=== PATIENT | female | born 1975 | race Caucasian/White ===

== ENCOUNTER 2019-07-19 03:29 | Emergency (ER) | payer SELFPAY ==
[~2019-07-19] VITALS: Ht 160 cm; Wt 77.2 kg
--- NOTE | 2019-07-19 04:04 | PHYS DOC ---
General Adult EDM: Chief Complaint: CHEST PAIN HPI: HPI: Patient is a 43 year old female who presents with complaint of chest pain that started last night. Patient states that pain radiates into her left shoulder blade and is primarily in her left mid upper chest. She states that at one point she became nauseated and vomited. She states that at its worst pain was about a 9 out of 10 but is currently a 7 out of 10. She describes it as a deep ache. Patient states that nothing seems to worsen or improve the pain. [] (TERA HUDSON Jr. DO) Review of Systems: Review of Systems: Constitutional: Denies fever or chills. [] Respiratory: Denies cough or shortness of breath. [] Cardiovascular: Complains of chest pain. [] GI: Denies abdominal pain, nausea, vomiting or diarrhea. [] Neurologic: Denies headache, focal weakness or sensory changes. [] A full 10 point review of systems has been reviewed and is otherwise negative. (TERA HUDSON Jr. DO) Heart Score: Risk Factors: Risk Factors: DM, Current or recent (<one month) smoker, HTN, HLP, family history of CAD, obesity. Risk Scores: Score 0 - 3: 2.5% MACE over next 6 weeks - Discharge Home Score 4 - 6: 20.3% MACE over next 6 weeks - Admit for Clinical Observation Score 7 - 10: 72.7% MACE over next 6 weeks - Early Invasive Strategies (TERA HUDSON Jr. DO) HEART Score for Chest Pain: HEART Score for Chest Pain Response (Comments) Value History Slighlty/Non-Suspicious 0 ECG Normal 0 Age < 45 0 Risk Factors 1 or 2 Risk Factors 1 Troponin < Normal Limit 0 Total 1 Physical Exam: PE: Constitutional: Well developed, well nourished, no acute distress, non-toxic appearance. [] HENT: Normocephalic, atraumatic, bilateral external ears normal, oropharynx moist, no oral exudates, nose normal. [] Eyes: PERRLA, EOMI, conjunctiva normal, no discharge. [] Neck: Normal range of motion, no tenderness, supple, no stridor. [] Cardiovascular: Regular rate and rhythm [] Lungs & Thorax: Bilateral breath sounds clear to auscultation [] Abdomen: Bowel sounds normal, soft, no tenderness. [] Skin: Warm, dry, no erythema, no rash. [] Extremities: No tenderness, no cyanosis, no clubbing, ROM intact, no edema. [] Neurologic: Alert and oriented X 3, no focal deficits noted. [] (TERA HUDSON Jr. DO) Current Patient Data: Labs: Laboratory Tests Test 07/19/19 03:50 07/19/19 06:45 White Blood Count 9.0 x10^3/uL Red Blood Count 4.65 x10^6/uL Hemoglobin 14.7 g/dL Hematocrit 43.2 % Mean Corpuscular Volume 93 fL Mean Corpuscular Hemoglobin 32 pg Mean Corpuscular Hemoglobin Concent 34 g/dL Red Cell Distribution Width 13.3 % Platelet Count 277 x10^3/uL Neutrophils (%) (Auto) 78 % Lymphocytes (%) (Auto) 16 % Monocytes (%) (Auto) 4 % Eosinophils (%) (Auto) 1 % Basophils (%) (Auto) 0 % Neutrophils # (Auto) 7.0 x10^3/uL Lymphocytes # (Auto) 1.5 x10^3/uL Monocytes # (Auto) 0.4 x10^3/uL Eosinophils # (Auto) 0.1 x10^3/uL Basophils # (Auto) 0.0 x10^3/uL Sodium Level 140 mmol/L Potassium Level 4.2 mmol/L Chloride Level 106 mmol/L Carbon Dioxide Level 26 mmol/L Anion Gap 8 Blood Urea Nitrogen 11 mg/dL Creatinine 0.7 mg/dL Estimated GFR (Cockcroft-Gault) 91.3 BUN/Creatinine Ratio 16 Glucose Level 125 mg/dL Calcium Level 8.6 mg/dL Magnesium Level 2.0 mg/dL Total Bilirubin 0.3 mg/dL Aspartate Amino Transf (AST/SGOT) 27 U/L Alanine Aminotransferase (ALT/SGPT) 30 U/L Alkaline Phosphatase 61 U/L Troponin I Quantitative < 0.017 ng/mL < 0.017 ng/mL TT-Jyc-G-Type Natriuretic Peptide 60 pg/mL Total Protein 6.9 g/dL Albumin 3.8 g/dL Albumin/Globulin Ratio 1.2 Lipase 69 U/L D-Dimer (Ashwini) < 0.27 ug/mlFEU Urine Collection Type Void Urine Color Yellow Urine Clarity Clear Urine pH 6.5 Urine Specific [place] 1.010 Urine Protein Negative mg/dL Urine Glucose (UA) Negative mg/dL Urine Ketones (Stick) Negative mg/dL Urine Blood Negative Urine Nitrite Negative Urine Bilirubin Negative Urine Urobilinogen Dipstick 0.2 mg/dL Urine Leukocyte Esterase Negative Urine RBC Occ /HPF Urine WBC Occ /HPF Urine Squamous Epithelial Cells Mod /LPF Urine Bacteria Few /HPF Urine Mucus Slight /LPF Current Medications Medications (Trade) Dose Ordered Sig/Cassy Route PRN Reason Start Time Stop Time Status Last Admin Dose Admin Morphine Sulfate (Morphine Sulfate) 4 mg 1X ONCE IV 07/19/19 04:15 07/19/19 04:16 DC Ondansetron HCl (Zofran) 4 mg 1X ONCE IVP 07/19/19 04:15 07/19/19 04:16 DC Aspirin (Aspirin Chewable) 324 mg 1X ONCE PO 07/19/19 04:30 07/19/19 04:31 DC 07/19/19 05:22 Sodium Chloride 1,000 ml @ 1,000 mls/hr Q1H IV 07/19/19 04:30 07/19/19 05:29 DC 07/19/19 05:21 (REHAN ARRIETA DO) EKG: EKG: EKG demonstrates normal sinus rhythm with rate of 81. [] (TERA HUDSON Jr. DO) Radiology/Procedures: Radiology/Procedures: [] Impression: Chest x-ray demonstrates no acute process (TERA HUDSON Jr. DO) Course & Med Decision Making: Course & Med Decision Making Pertinent Labs and Imaging studies reviewed. (See chart for details) Patient moved to room upon arrival was evaluated by ER medical staff after which an IV was established and blood work was drawn. A cardiac work-up has been completed. Initial cardiac enzymes are negative. Findings reviewed with patient and patient does report that she is still having significant pain. I did inquire if patient would like some additional pain medication but she indicated that she did not accept the morphine that was ordered. She states that if she needs to go home, she needs to be able to drive. Patient was encouraged to accept some medication for pain but at this time is still declining. I did discuss admission with the patient but she is still unsure at this time. Patient at this time does agree to repeat set of cardiac enzymes and will also obtain a d-dimer. Patient will be signed out to Dr. Arrieta at 6:30 AM. (TERA HUDSON Jr. DO) Course & Med Decision Making CHEST PAIN, NONSPECIFIC: The patient presents today with chest pain lasting [duration]. The quality of the pain is very atypical for acute coronary syndrome. Additionally, the patient has minimal risk factors for coronary artery disease with a suggestion of good exercise tolerance and does not have ongoing chest pain. Given the duration of the chest pain with cardiac enzymes returning within normal limits, I do feel that from a risk stratification standpoint, the patient can be safely discharged home for outpatient evaluation by the primary care physician. The patient, however, fully understands that the evaluation today in no way rules out coronary artery disease as a possibility and that close followup is necessary as a component of a complete evaluation. The patient also understands that should the pain change, or become more frequent, more intense, or should the patient develop new symptoms, the patient is instructed to return immediately to the emergency room for reevaluation. However, at this time, given the lack of significant risk factors in conjunction with an atypical history in conjunction with normal enzymes despite the duration of pain and an unchanged or normal EKG, I do feel that the information available to us at this time suggests that this is unlikely to represent acute plaque rupture and that the risk of morbidity or mortality is low. Also considered today was the possibility of a pneumothorax, pneumonia, pulmonary embolus, mediastinitis, and thoracic aortic dissection. However, after careful consideration of the patient's clinical history and presentation and findings, there is no evidence to suggest any of these as a likely diagnosis and therefore feel that the continued pursuit of these etiologies is not warranted at this time. (REHAN ARRIETA DO) Linda Disclaimer: Linda Disclaimer: This electronic medical record was generated, in whole or in part, using a voice recognition dictation system. (TERA HUDSON Jr. DO) Departure Departure Impression: Primary Impression: Chest pain Disposition: 01 HOME, SELF-CARE Condition: IMPROVED Patient Instructions: Chest Pain (Nonspecific) Additional Instructions: Thank you for visiting our Emergency Department. We appreciate you trusting us with your care. If any additional problems come up don't hesitate to return to visit us. Please follow up with your primary care provider so they can plan additional care if needed and know about the problem that you had. If symptoms worsen come back to the Emergency Department. Any concerning symptoms that start such as chest pain, shortness of air, weakness or numbness on one side of the b mayank, running high fevers or any other concerning symptoms return to the ER. Scripts Prednisone (PREDNISONE) 20 Mg Tablet 1 TAB PO DAILY for 7 Days, #7 TAB Prov: REHAN ARRIETA DO 07/19/19 Justicifation of Admission Dx: Justifications for Admission: Justification of Admission Dx: Comment: (chest pain) (TERA HUDSON Jr. DO) TERA HUDSON Jr. DO Jul 19, 2019 04:04 REHAN ARRIETA DO Jul 19, 2019 08:06
[2019-07-19] MEDS ORDERED: MORPHINE SULFATE 4 MG/ML VIAL. IV ONE (04:15)
[2019-07-19] MEDS ORDERED: ONDANSETRON PF 4 MG/2 ML VIAL. IVP ONE (04:15)
[2019-07-19] MEDS ORDERED: ASPIRIN CHEWABLE 81 MG TABLET. PO ONE (04:30)
[2019-07-19] MEDS ORDERED: IV NORMAL SALINE 1000ML BAG 1,000 ML IV SCH (04:30)
[2019-07-19 04:40] LABS: BASO % 0 % (0-3); EOS # 0.1 x10^3/uL (0.0-0.7); EOS % 1 % (0-3); HEMATOCRIT 43.2 % (36.0-47.0); HEMOGLOBIN 14.7 g/dL (12.0-15.5); LYMPH # 1.5 x10^3/uL (1.0-4.8); LYMPH % 16 % (24-48); MEAN CORPUSCULAR HEMOGLOBIN 32 pg (25-35); MEAN CORPUSCULAR HGB CONC 34 g/dL (31-37); MEAN CORPUSCULAR VOLUME 93 fL (79-100); MONO # 0.4 x10^3/uL (0.0-1.1); MONO % 4 % (0-9); NEUT % 78 % (31-73); PLATELET COUNT 277 x10^3/uL (140-400); RED BLOOD COUNT 4.65 x10^6/uL (3.50-5.40); RED CELL DISTRIBUTION WIDTH 13.3 % (11.5-14.5)
[2019-07-19 04:52] LABS: CALCIUM 8.6 mg/dL (8.5-10.1); CREATININE 0.7 mg/dL (0.6-1.0); GFR 91.3; POTASSIUM 4.2 mmol/L (3.5-5.1)
[2019-07-19 04:55] LABS: ALBUMIN 3.8 g/dL (3.4-5.0); ALBUMIN/GLOBULIN RATIO 1.2 (1.0-1.7); TOTAL BILIRUBIN 0.3 mg/dL (0.2-1.0); TOTAL PROTEIN 6.9 g/dL (6.4-8.2)
--- NOTE | 2019-07-19 06:50 | RAD ---
INDICATION: Reason: chest pain / Spl. Instructions: / History: COMPARISON: None. FINDINGS: Single view of chest obtained. Calcification in the soft tissues adjacent to the right shoulder. Hypertrophic changes at the acromioclavicular joints. Cardiac silhouette is unremarkable. No focal airspace consolidation. IMPRESSION: * No focal airspace consolidation or edema. Electronically signed by: Phuc Oswald MD (07/19/2019 6:48 AM) [id number]
[2019-07-19 07:14] LABS: BILIRUBIN,URINE NEGATIVE (NEG); CLARITY,URINE CLEAR; COLOR,URINE YELLOW; NITRITE,URINE NEGATIVE (NEG); PH,URINE 6.5 (<5.0-8.0); PROTEIN,URINE NEGATIVE (NEG-TRACE); UROBILINOGEN,URINE 0.2 mg/dL (0.2 mg/dL)
[2019-07-19 07:17] LABS: SQUAMOUS EPITHELIAL CELL,UR MOD /LPF
[2019-07-19 07:18] LABS: BACTERIA,URINE FEW /HPF (0-FEW); RBC,URINE OCC /HPF (0-2); WBC,URINE OCC /HPF (0-4)
[2019-07-19] MEDS ORDERED: PRED20TA PO (08:05)
[2019-07-19 08:17] VITALS: BP 143/80
--- NOTE | 2019-07-21 06:17 | EKG ---
[facility] [address] [place] [address] Test Date: 2019-07-19 Test Time: 03:37:46 Pat Name: RENETTA HENRIQUEZ Department: Room: Gender: F Flight Hostess: : 1975 Requested By: TERA HUDSON Order Number: [id number] Reading MD: Christiano Sharif MD Measurements Intervals [place] Rate: 81 P: 51 NV: 148 QRS: 28 QRSD: 92 T: 30 QT: 372 QTc: 438 Interpretive Statements SINUS RHYTHM Electronically Signed On 07-21-2019 13:18:13 CDT by Christiano Sharif MD
== END 2019-07-19 08:40 | disposition home or self-care (01) ==
LOC: ER 03:29
DX: R07.89 Other chest pain (principal); R11.2 Nausea with vomiting, unspecified
CPT/HCPCS: 36415; 71045; 80053; 81001; 83690; 83735; 83880; 84484; 85025; 85379; 96360; 99285; J7030; 93005

== ENCOUNTER 2019-09-03 20:18 | Emergency (ER) | payer SELFPAY ==
[~2019-09-03] VITALS: Ht 160 cm; Wt 72.7 kg
[~2019-09-03 20:18] MED LIST: PRED20TA PO
[2019-09-03] MEDS ORDERED: ASPIRIN CHEWABLE 81 MG TABLET. PO ONE (21:00)
[2019-09-03 21:10] LABS: BASO % 0 % (0-3); EOS # 0.2 x10^3/uL (0.0-0.7); EOS % 2 % (0-3); HEMATOCRIT 44.4 % (36.0-47.0); HEMOGLOBIN 15.2 g/dL (12.0-15.5); LYMPH # 2.5 x10^3/uL (1.0-4.8); LYMPH % 23 % (24-48); MEAN CORPUSCULAR HEMOGLOBIN 32 pg (25-35); MEAN CORPUSCULAR HGB CONC 34 g/dL (31-37); MEAN CORPUSCULAR VOLUME 92 fL (79-100); MONO # 0.6 x10^3/uL (0.0-1.1); MONO % 6 % (0-9); NEUT # 7.3 x10^3/uL (1.8-7.7); NEUT % 69 % (31-73); PLATELET COUNT 278 x10^3/uL (140-400); RED BLOOD COUNT 4.83 x10^6/uL (3.50-5.40); WHITE BLOOD COUNT 10.6 x10^3/uL (4.0-11.0)
[2019-09-03 21:18] LABS: CALCIUM 9.3 mg/dL (8.5-10.1); CREATININE 0.9 mg/dL (0.6-1.0); GFR 68.3; POTASSIUM 3.7 mmol/L (3.5-5.1)
--- NOTE | 2019-09-03 21:21 | RAD ---
Exam: Chest one view INDICATION: Chest pain TECHNIQUE: Frontal view of the chest Comparisons: 07/19/2019 FINDINGS: The cardiomediastinal silhouette and pulmonary vessels are within normal limits. The lung and pleural spaces are clear. IMPRESSION: No acute cardiopulmonary process. Electronically signed by: Vee Gorman MD (09/03/2019 9:17 PM) [id number]
[2019-09-03 21:24] LABS: ALBUMIN 4.2 g/dL (3.4-5.0); ALBUMIN/GLOBULIN RATIO 1.4 (1.0-1.7); TOTAL BILIRUBIN 0.3 mg/dL (0.2-1.0); TOTAL PROTEIN 7.3 g/dL (6.4-8.2)
[2019-09-03 22:00] VITALS: BP 118/70
[2019-09-03] MEDS ORDERED: PANT20TA2 PO (22:05)
--- NOTE | 2019-09-03 22:06 | PHYS DOC ---
Past Medical History Past Medical History: Asthma Past Surgical History: , Hysterectomy, Tonsillectomy Smoking Status: Current Every Day Smoker Alcohol Use: Occasionally General Adult EDM: Chief Complaint: CHEST PAIN-CARDIAC NATURE HPI: HPI: Patient is a 43-year-old otherwise healthy female who presents with sharp left- sided chest pain. She states it started in her back and is now in the front of her chest. She denies any shortness of breath dyspnea on exertion. She denies a pleuritic nature. She has not had any cough or congestion. She denies hemoptysis. She states it started rather suddenly. She denies any fever chills or sweats. She states as long as she is sitting here in the bed the pain feels much better now. She has had some indigestion throughout the day today. She states this pain is been ongoing throughout the day today. [] Review of Systems: Review of Systems: Constitutional: Denies fever or chills. [] Eyes: Denies change in visual acuity. [] HENT: Denies nasal congestion or sore throat. [] Respiratory: Denies cough or shortness of breath. [] Cardiovascular: Per HPI. [] GI: Denies abdominal pain, nausea, vomiting, bloody stools or diarrhea. [] : Denies dysuria. [] Musculoskeletal: Denies back pain or joint pain. [] Integument: Denies rash. [] Neurologic: Denies headache, focal weakness or sensory changes. [] Endocrine: Denies polyuria or polydipsia. [] Lymphatic: Denies swollen glands. [] Psychiatric: Denies depression or anxiety. [] Heart Score: HEART Score for Chest Pain: HEART Score for Chest Pain Response (Comments) Value History Slighlty/Non-Suspicious 0 ECG Normal 0 Age < 45 0 Risk Factors 1 or 2 Risk Factors 1 Troponin < Normal Limit 0 Total 1 Risk Factors: Risk Factors: DM, Current or recent (<one month) smoker, HTN, HLP, family history of CAD, obesity. Risk Scores: Score 0 - 3: 2.5% MACE over next 6 weeks - Discharge Home Score 4 - 6: 20.3% MACE over next 6 weeks - Admit for Clinical Observation Score 7 - 10: 72.7% MACE over next 6 weeks - Early Invasive Strategies Current Medications: Current Medications Medications (Trade) Dose Ordered Sig/Cassy Start Time Stop Time Status Last Admin Dose Admin Aspirin (Aspirin Chewable) 324 mg 1X ONCE 09/03/19 21:00 09/03/19 21:01 DC 09/03/19 21:18 324 MG Allergies: Allergies: Allergies Coded Allergies Type Severity Reaction Last Updated Verified No Known Drug Allergies 07/19/19 No Physical Exam: PE: Constitutional: Well developed, well nourished, no acute distress, non-toxic appearance. [] HENT: Normocephalic, atraumatic, bilateral external ears normal, oropharynx moist, no oral exudates, nose normal. [] Eyes: PERRLA, EOMI, conjunctiva normal, no discharge. [] Neck: Normal range of motion, no tenderness, supple, no stridor. [] Cardiovascular:Heart rate regular rhythm, no murmur [] Lungs & Thorax: Bilateral breath sounds clear to auscultation [] Abdomen: Bowel sounds normal, soft, no tenderness, no masses, no pulsatile masses. [] Skin: Warm, dry, no erythema, no rash. [] Back: No tenderness, no CVA tenderness. [] Extremities: No tenderness, no cyanosis, no clubbing, ROM intact, no edema. [] Neurologic: Alert and oriented X 3, normal motor function, normal sensory function, no focal deficits noted. [] Psychologic: Extremely anxious. [] Current Patient Data: Labs: Laboratory Tests Test 09/03/19 20:27 White Blood Count 10.6 x10^3/uL (4.0-11.0) Red Blood Count 4.83 x10^6/uL (3.50-5.40) Hemoglobin 15.2 g/dL (12.0-15.5) Hematocrit 44.4 % (36.0-47.0) Mean Corpuscular Volume 92 fL (79-100) Mean Corpuscular Hemoglobin 32 pg (25-35) Mean Corpuscular Hemoglobin Concent 34 g/dL (31-37) Red Cell Distribution Width 13.0 % (11.5-14.5) Platelet Count 278 x10^3/uL (140-400) Neutrophils (%) (Auto) 69 % (31-73) Lymphocytes (%) (Auto) 23 % (24-48) L Monocytes (%) (Auto) 6 % (0-9) Eosinophils (%) (Auto) 2 % (0-3) Basophils (%) (Auto) 0 % (0-3) Neutrophils # (Auto) 7.3 x10^3/uL (1.8-7.7) Lymphocytes # (Auto) 2.5 x10^3/uL (1.0-4.8) Monocytes # (Auto) 0.6 x10^3/uL (0.0-1.1) Eosinophils # (Auto) 0.2 x10^3/uL (0.0-0.7) Basophils # (Auto) 0.0 x10^3/uL (0.0-0.2) D-Dimer (Ashwini) < 0.27 ug/mlFEU Sodium Level 142 mmol/L (136-145) Potassium Level 3.7 mmol/L (3.5-5.1) Chloride Level 104 mmol/L (98-107) Carbon Dioxide Level 27 mmol/L (21-32) Anion Gap 11 (6-14) Blood Urea Nitrogen 12 mg/dL (7-20) Creatinine 0.9 mg/dL (0.6-1.0) Estimated GFR (Cockcroft-Gault) 68.3 BUN/Creatinine Ratio 13 (6-20) Glucose Level 110 mg/dL (70-99) H Calcium Level 9.3 mg/dL (8.5-10.1) Total Bilirubin 0.3 mg/dL (0.2-1.0) Aspartate Amino Transferase (AST) 17 U/L (15-37) Alanine Aminotransferase (ALT) 29 U/L (14-59) Alkaline Phosphatase 60 U/L (46-116) Troponin I Quantitative < 0.017 ng/mL (0.000-0.055) Total Protein 7.3 g/dL (6.4-8.2) Albumin 4.2 g/dL (3.4-5.0) Albumin/Globulin Ratio 1.4 (1.0-1.7) Laboratory Tests 09/03/19 20:27 Laboratory Tests 09/03/19 20:27 Vital Signs: Vital Signs Date Time Temp Pulse Resp B/P (MAP) Pulse Ox O2 Delivery O2 Flow Rate FiO2 09/03/19 20:31 97.9 80 16 153/85 (107) 100 Room Air 97.9 EKG: EKG: EKG: Normal sinus rhythm rate of [address]-T changes [] Radiology/Procedures: Radiology/Procedures: [] Impression: ROCEDURE: CHEST AP ONLY Exam: Chest one view INDICATION: Chest pain TECHNIQUE: Frontal view of the chest Comparisons: 07/19/2019 FINDINGS: The cardiomediastinal silhouette and pulmonary vessels are within normal limits. The lung and pleural spaces are clear. IMPRESSION: No acute cardiopulmonary process. Course & Med Decision Making: Course & Med Decision Making Pertinent Labs and Imaging studies reviewed. (See chart for details) [ED course: Evaluation reveals a 43-year-old anxious female with some atypical sounding chest pain. Her entire cardiac work-up was normal here I believe she is safe for discharge home.] Dragon Disclaimer: Dragon Disclaimer: This electronic medical record was generated, in whole or in part, using a voice recognition dictation system. Departure Departure Impression: Primary Impression: Non-cardiac chest pain Disposition: 01 HOME, SELF-CARE Condition: STABLE Referrals: UNKNOWN PCP NAME (PCP) Patient Instructions: Chest Pain (Nonspecific) Additional Instructions: Return to the emergency department with any new or concerning symptoms Scripts Pantoprazole Sodium (PROTONIX) 20 Mg Tablet. 1 TAB PO DAILY, #30 TAB Prov: CLAYTON HAGAN DO 09/03/19 Justicifation of Admission Dx: Justifications for Admission: Justification of Admission Dx: CLAYTON Nielsen DO Sep 03, 2019 22:06
--- NOTE | 2019-09-04 03:02 | EKG ---
[facility] [address] [place] [address] Test Date: 2019-09-03 Test Time: 20:26:49 Pat Name: RENETTA HENRIQUEZ Department: Room: Gender: F Information Systems Security Specialist: : 1975 Requested By: CLAYTON HAGAN Order Number: [id number] Reading MD: Measurements Intervals [place] Rate: 74 P: 57 IA: 144 QRS: 36 QRSD: 90 T: 39 QT: 378 QTc: 420 Interpretive Statements SINUS RHYTHM QRS(T) CONTOUR ABNORMALITY CONSIDER ANTEROSEPTAL MYOCARDIAL DAMAGE POSSIBLY ABNORMAL ECG RI6.01 No previous ECG available for comparison
== END 2019-09-03 22:24 | disposition home or self-care (01) ==
LOC: ER 20:18
DX: R07.89 Other chest pain (principal); J45.909 Unspecified asthma, uncomplicated; F17.200 Nicotine dependence, unspecified, uncomplicated; Z90.89 Acquired absence of other organs; Z90.710 Acquired absence of both cervix and uterus; Z98.890 Other specified postprocedural states; Z90.49 Acquired absence of other specified parts of digestive tract
CPT/HCPCS: 36415; 71045; 80053; 84484; 85025; 85379; 93005; 99285

== ENCOUNTER 2020-04-21 09:43 | Emergency (ER) | payer OTHER ==
[~2020-04-21] VITALS: Ht 160 cm; Wt 68.2 kg
[~2020-04-21 09:43] MED LIST changes: +PANT20TA2 PO
--- NOTE | 2020-04-21 09:54 | EKG ---
[facility] [address] [place] [address] Test Date: 2020-04-21 Test Time: 09:51:43 Pat Name: RENETTA HENRIQUEZ Department: Room: Gender: F Distribution Associate: : 1975 Requested By: QI CASTRO Order Number: [id number] Reading MD: Measurements Intervals [place] Rate: 77 P: 59 IA: 138 QRS: 42 QRSD: 88 T: 42 QT: 372 QTc: 423 Interpretive Statements SINUS RHYTHM NORMAL ECG RI6.02 No previous ECG available for comparison
[2020-04-21 10:19] LABS: BASO # 0.1 x10^3/uL (0.0-0.2); BASO % 1 % (0-3); EOS # 0.2 x10^3/uL (0.0-0.7); EOS % 3 % (0-3); HEMATOCRIT 43.1 % (36.0-47.0); HEMOGLOBIN 14.9 g/dL (12.0-15.5); LYMPH # 2.4 x10^3/uL (1.0-4.8); LYMPH % 34 % (24-48); MEAN CORPUSCULAR HEMOGLOBIN 32 pg (25-35); MEAN CORPUSCULAR HGB CONC 35 g/dL (31-37); MEAN CORPUSCULAR VOLUME 93 fL (79-100); MONO # 0.5 x10^3/uL (0.0-1.1); MONO % 7 % (0-9); NEUT % 56 % (31-73); PLATELET COUNT 264 x10^3/uL (140-400); RED BLOOD COUNT 4.66 x10^6/uL (3.50-5.40); RED CELL DISTRIBUTION WIDTH 13.2 % (11.5-14.5); WHITE BLOOD COUNT 7.2 x10^3/uL (4.0-11.0)
--- NOTE | 2020-04-21 10:19 | PHYS DOC ---
Past Medical History Past Medical History: Asthma, Other Additional Past Medical Histor: seasonal allergies Past Surgical History: , Tonsillectomy, Tubal ligation Additional Past Surgical Histo: D&C Smoking Status: Current Every Day Smoker Alcohol Use: None General Adult EDM: Chief Complaint: CHEST WALL PAIN HPI: HPI: 44-year-old female past medical history of asthma and tobacco use presents the ED with complaints of complaints of, " I keep having right upper back pain, cannot take anymore, is not hurting right now, I took Tylenol sinus, after I woke up and pain came back." He reports feeling as if she has chest congestion/"I think I have a chest cold." No asthma symptoms or difficulties breathing. As she was walking in the ED reports dull left upper chest discomfort that has resolved-occurred for a few minutes. No history of known Covid. No history of cocaine or methamphetamine abuse. Reports she is going through menopause and because of this has intermittent nausea, no nausea with presenting symptoms. Maternal grandfather with quadruple bypass at the age of 60. Aunt with a pacemaker for vagal syncope. Denies any personal history of family history of cardiac arrhythmias, sudden under the age of 50, CTD including Marfan's, AAA/AAD or clotting disorders. H/o tubal ligation. Mother reports she feels as if her daughter is "stressed and overwhelmed," due to unemployment for the past 2 months. Patient reports she sleeps well, denies any SI or HI. Review of Systems: Review of Systems: Constitutional: Denies fever or chills. [] Eyes: Denies change in visual acuity. [] HENT: Denies nasal congestion or sore throat. [] Respiratory: Denies cough or shortness of breath. [] Cardiovascular: Denies syncope or edema. [] GI: Denies abdominal pain, nausea, vomiting, bloody stools or diarrhea. [] : Denies dysuria. [] Musculoskeletal: Denies midline back pain or joint pain. [] Integument: Denies rash or diaphoresis Neurologic: Denies headache, focal weakness or sensory changes. [] Endocrine: Denies polyuria or polydipsia. [] Lymphatic: Denies swollen glands. [] Psychiatric: Denies depression or anxiety. [] Heart Score: C/O Chest Pain: Yes HEART Score for Chest Pain: HEART Score for Chest Pain Response (Comments) Value History Slighlty/Non-Suspicious 0 ECG Normal 0 Age < 45 0 Risk Factors 1 or 2 Risk Factors 1 Troponin < Normal Limit 0 Total 1 Risk Factors: Risk Factors: DM, Current or recent (<one month) smoker, HTN, HLP, family history of CAD, obesity. Risk Scores: Score 0 - 3: 2.5% MACE over next 6 weeks - Discharge Home Score 4 - 6: 20.3% MACE over next 6 weeks - Admit for Clinical Observation Score 7 - 10: 72.7% MACE over next 6 weeks - Early Invasive Strategies Allergies: Allergies: Allergies Coded Allergies Type Severity Reaction Last Updated Verified No Known Drug Allergies 07/19/19 No Physical Exam: PE: Constitutional: Well developed, well nourished, no acute distress, non-toxic appearance. HENT: Normocephalic, atraumatic, strabismus present Eyes: EOMI, conjunctiva normal, no discharge. Neck: Normal range of motion, supple, Cardiovascular: S1/2 present, regular rhythm, no murmurs Lungs & Thorax: Speaking in full sentences, bilateral equal chest rise, no tachypnea or increased work of breathing, clear lung sounds auscultation bilaterally, no wheezing/rales/crackles Abdomen: soft, no tenderness, Skin: Warm, dry, no erythema, no rash. [] Back: right upper thoracic paraspinal back pain just lateral of scapula-skin exam normal, Pain is not reproducible, patient is asymptomatic in ED, no CVA tenderness. [] Extremities: No tenderness, no cyanosis, no lower extremity edema Neurologic: Alert and oriented X 3, normal motor function, normal sensory function, no focal deficits noted. [] Psychologic: Affect normal, judgement normal, mood normal. [] Current Patient Data: Vital Signs: Vital Signs Date Time Temp Pulse Resp B/P (MAP) Pulse Ox O2 Delivery O2 Flow Rate FiO2 04/21/20 09:59 97.7 83 18 161/101 (121) 98 Room Air 97.7 EKG: EKG: Sinus rhythm at 77 bpm, no axis deviation, normal intervals, no T wave inversi ons, no ST elevations or ST depressions Radiology/Procedures: Radiology/Procedures: []IMAGING REPORT Signed PATIENT: RENETTA HENRIQUEZ LACCOUNT: [id number] : 1975 LOCATION: ER AGE: 44 SEX: F EXAM STATUS: REG ER ORD. PHYSICIAN: QI CASTRO DO REASON: cp PROCEDURE: PORTABLE CHEST 1V EXAM: CHEST 1 VIEW History: Chest pain COMPARISON: 09/03/2019 TECHNIQUE: Single portable radiograph of the chest FINDINGS: The cardiac silhouette is unremarkable. The lungs are clear bilaterally. The costophrenic sulci are clear and well demarcated. . IMPRESSION: No radiographic evidence of an acute cardiopulmonary process. Electronically signed by: Tejinder Montiel MD (04/21/2020 10:43 AM) [id number] DICTATED and SIGNED BY: TEJINDER MONTIEL MD DATE: 04/21/20 [id number] Course & Med Decision Making: Course & Med Decision Making Pertinent Labs and Imaging studies reviewed. (See chart for details) Concern for intermittent right upper back pain, brief episode of chest pain while in ED. D-dimer unremarkable. Troponin negative. EKG with no ischemia. Patient is low risk for mace. Unable to provide urine sample. I do not suspect urinalysis will change patient's management. She does not have typical present ation of any life/limb threatening processes. Will discharge home with strict ED return precautions were given for syncope, chest pressure tightness tearing or ripping, dyspnea, hemoptysis, leg swelling or neurologic deficits. Encouraged urgent outpatient follow-up with PMD and cardiology as outpatient. Life- threatening processes were considered but are low suspicion at this time, given history, physical exam and ED workup. Pt was educated on all prescription medications and adverse effects. All patient's questions were answered and pt was stable at time of discharge. Life/limb-threatening differential includes but is not limited to, aortic dissection/aneurysm, cauda equina syndrome, transverse myelitis, spinal cord/epidural compression syndromes, discitis, spinal stenosis, epidural abscess or hematoma, osteomyelitis, disc herniation, surgical abdomen, stable or unstable fracture, renal/ureteral colic, sepsis, meningitis, musculoskeletal injury, traumatic injury, intraabdominal/retroperitoneal or pelvic bleeding. I spoken with the patient and her caregivers. I explained the patient's condition, diagnoses and treatment plan based on the information available to me at this time. I have answered the patient and her caregiver's questions and addressed any concerns. The patient and her caregivers have a good understanding of patient's diagnosis, condition and treatment plan as can be expected at this point. Vital signs have been stable. Patient's condition is stable and appropriate for discharge from the emergency department. Patient will pursue further outpatient evaluation with primary care physician or other designated or consulting physician as outlined in the discharge instructions. The patient and/or caregivers are agreeable to this plan of care and follow-up instructions have been explained in detail. The patient and/or caregivers have received these instructions in written form and have expressed an understanding of the discharge instructions. The patient and/or caregivers are aware that any significant change of condition or worsening of symptoms should prompt immediate return to this or the closest emergency department or call to [facility] Disclaimer: Linda Disclaimer: This electronic medical record was generated, in whole or in part, using a voice recognition dictation system. Departure Departure Impression: Primary Impression: Upper back pain on right side Additional Impression: Atypical chest pain Disposition: 01 DC HOME SELF CARE/HOMELESS Condition: STABLE Referrals: DIANE BRISENO (PCP) within 2-3 days for re-evaluation Patient Instructions: Back Pain, Adult, Chest Pain (Nonspecific) Additional Instructions: FOLLOW UP WITH CARDIOLOGY: [facility] Address: [address] [place] [address] EMERGENCY DEPARTMENT GENERAL DISCHARGE INSTRUCTIONS Thank you for coming to [facility] (ED) today and trusting us with you care. We trust that you had a positive experience in our Emergency Department. If you wish to speak to the department management, you may call the Director at [phone]. YOUR FOLLOW UP INSTRUCTIONS ARE FOLLOWS: 1. Do you have a private Doctor? If you do not have a private doctor, please ask for a resource list of physicians or clinics that may be able to assist you with follow up care. 2. The Emergency Physicain has interpreted your x-rays. The X-Ray specialist will also review them. If there is a change in the findings, you will be notified in 48 hours when at all possible. 3. A lab test or culture has been done, your results will be reviewed and you will be notified if you need a change in treatment. ADDITIONAL INSTRUCTIONS AND INFORMATION: 1. Your care today has been supervised by a physician who is specially trained in emergency care. Many problems require more than one evaluation for a complete diagnosis and treatment. We recommend that you schedule your follow up appointment as recommended to ensure complete treatment of you illness or injury. If you are unable to obtain follow up care and continue to have a problem, or if your condition worsens, we recommend that you return to the ED. 2. We are not able to safely determine your condition over the phone nor are we able to give sound medical advice over the phone. For these safety reasons, if you call for medical advice we will ask you to come to the ED for further evaluation. 3. If you have any questions regarding these discharge instructions please call the ED at [phone]. SAFETY INFORMATION: In the interest of safety, wellness, and injury prevention; we encourage you to wear your sealbelt, if you smoke; quite smoking, and we encourage family to use a protective helmet for bicycling and other sporting events that present an increased risk for head injury. IF YOUR SYMPTOMS WORSEN OR NEW SYMPTOMS DEVELOP, OR YOU HAVE CONCERNS ABOUT YOUR CONDITION; OR IF YOUR CONDITION WORSENS WHILE YOU ARE WAITING FOR YOUR FOLLOW UP APPOINTMENT; EITHER CONTACT YOUR PRIMARY CARE DOCTOR, THE PHYSICIAN WHOSE NAME AND NUMBER YOU WERE GIVEN, OR RETURN TO THE ED IMMEDIATELY. QI CASTRO DO Apr 21, 2020 10:19
[2020-04-21 10:27] LABS: CREATININE 0.8 mg/dL (0.6-1.0); GFR 77.9; POTASSIUM 4.3 mmol/L (3.5-5.1)
[2020-04-21 10:32] LABS: ALBUMIN 4.1 g/dL (3.4-5.0); ALBUMIN/GLOBULIN RATIO 1.3 (1.0-1.7); MAGNESIUM 1.9 mg/dL (1.8-2.4); TOTAL BILIRUBIN 0.3 mg/dL (0.2-1.0); TOTAL PROTEIN 7.2 g/dL (6.4-8.2)
--- NOTE | 2020-04-21 10:45 | RAD ---
EXAM: CHEST 1 VIEW History: Chest pain COMPARISON: 09/03/2019 TECHNIQUE: Single portable radiograph of the chest FINDINGS: The cardiac silhouette is unremarkable. The lungs are clear bilaterally. The costophrenic sulci are clear and well demarcated. . IMPRESSION: No radiographic evidence of an acute cardiopulmonary process. Electronically signed by: Tejinder Montiel MD (04/21/2020 10:43 AM) [id number]
[2020-04-21] MEDS ORDERED: LIDOCAINE (700MG/PATCH) PATCH. TD SCH (11:00)
[2020-04-21 12:00] VITALS: BP 132/77
[2020-04-21] MEDS ORDERED: PATCH REMOVAL. MC SCH (21:00)
== END 2020-04-21 12:47 | disposition home or self-care (01) ==
LOC: ER 09:43
DX: M54.6 Pain in thoracic spine (principal); R07.89 Other chest pain; J45.909 Unspecified asthma, uncomplicated; F17.200 Nicotine dependence, unspecified, uncomplicated; Z98.51 Tubal ligation status
CPT/HCPCS: 36415; 71045; 80053; 83690; 83735; 83880; 84484; 85025; 85379; 93005; 99285-25

== ENCOUNTER 2020-07-08 07:03 | Observation (INO) | payer OTHER ==
[~2020-07-08] VITALS: Ht 160 cm; Wt 69.3 kg
--- NOTE | 2020-07-08 07:33 | PHYS DOC ---
Past Medical History Past Medical History: Asthma Additional Past Medical Histor: NECK PAIN, SEASONAL ALLERGIES Past Surgical History: Other Additional Past Surgical Histo: WISDOM TEETH REMOVAL Smoking Status: Current Every Day Smoker Alcohol Use: None General Adult EDM: Chief Complaint: DIZZY/LIGHT HEADED HPI: HPI: Patient is a 44 year old male who presented to ER for evaluation of dizziness off and on since Sunday. Patient said the symptom worse when she moves her head around. Patient has been seen a chiropractor since January of last year due to neck problem. He has been adjusted her neck multiple times. Patient went to see her chiropractor yesterday, her neck was adjusted again yesterday. Patient woke up this morning with worse dizziness therefore she came here for evaluation. Patient denies any chest pain, no abdominal pain, no nausea or vomiting. Patient denies any blurry vision, no weakness or numbness anywhere. She denies slurred speech. Patient denies history of hypertension, no history of diabetic. Patient has history of tubal ligation 15 years ago. Review of Systems: Review of Systems: Constitutional: Denies fever or chills. [] Eyes: Denies change in visual acuity. [] HENT: Denies nasal congestion or sore throat. [] Respiratory: Denies cough or shortness of breath. [] Cardiovascular: Denies chest pain or edema. [] GI: Denies abdominal pain, nausea, vomiting, bloody stools or diarrhea. [] : Denies dysuria. [] Musculoskeletal: Denies back pain or joint pain. [] Integument: Denies rash. [] Neurologic: Positive for dizziness, no headache, no focal weakness or numbness. Endocrine: Denies polyuria or polydipsia. [] Lymphatic: Denies swollen glands. [] Psychiatric: Denies depression or anxiety. [] Heart Score: C/O Chest Pain: N/A Risk Factors: Risk Factors: DM, Current or recent (<one month) smoker, HTN, HLP, family history of CAD, obesity. Risk Scores: Score 0 - 3: 2.5% MACE over next 6 weeks - Discharge Home Score 4 - 6: 20.3% MACE over next 6 weeks - Admit for Clinical Observation Score 7 - 10: 72.7% MACE over next 6 weeks - Early Invasive Strategies Allergies: Allergies: Allergies Coded Allergies Type Severity Reaction Last Updated Verified No Known Drug Allergies 07/19/19 No Physical Exam: PE: Constitutional: Well developed, well nourished, no acute distress, non-toxic appearance. [] HENT: Normocephalic, atraumatic, bilateral external ears normal, oropharynx moist, no oral exudates, nose normal. [] Eyes: PERRLA, EOMI, conjunctiva normal, no discharge. Positive for horizontal nystagmus. Neck: Normal range of motion, no tenderness, supple, no stridor. [] Cardiovascular:Heart rate regular rhythm, no murmur [] Lungs & Thorax: Bilateral breath sounds clear to auscultation [] Abdomen: Bowel sounds normal, soft, no tenderness, no masses, no pulsatile masses. [] Skin: Warm, dry, no erythema, no rash. [] Back: No tenderness, no CVA tenderness. [] Extremities: No tenderness, no cyanosis, no clubbing, ROM intact, no edema. [] Neurologic: Alert and oriented X 3, normal motor function, normal sensory function, no focal deficits noted. [] Psychologic: Affect normal, judgement normal, mood normal. [] Current Patient Data: Labs: Laboratory Tests Test 07/08/20 07:36 White Blood Count 6.3 x10^3/uL Red Blood Count 4.71 x10^6/uL Hemoglobin 15.0 g/dL Hematocrit 43.8 % Mean Corpuscular Volume 93 fL Mean Corpuscular Hemoglobin 32 pg Mean Corpuscular Hemoglobin Concent 34 g/dL Red Cell Distribution Width 13.3 % Platelet Count 269 x10^3/uL Neutrophils (%) (Auto) 47 % Lymphocytes (%) (Auto) 42 % Monocytes (%) (Auto) 7 % Eosinophils (%) (Auto) 4 % Basophils (%) (Auto) 1 % Neutrophils # (Auto) 3.0 x10^3/uL Lymphocytes # (Auto) 2.7 x10^3/uL Monocytes # (Auto) 0.4 x10^3/uL Eosinophils # (Auto) 0.2 x10^3/uL Basophils # (Auto) 0.1 x10^3/uL Sodium Level 144 mmol/L Potassium Level 3.7 mmol/L Chloride Level 106 mmol/L Carbon Dioxide Level 30 mmol/L Anion Gap 8 Blood Urea Nitrogen 9 mg/dL Creatinine 0.8 mg/dL Estimated GFR (Cockcroft-Gault) 77.9 BUN/Creatinine Ratio 11 Glucose Level 93 mg/dL Calcium Level 9.1 mg/dL Magnesium Level 1.8 mg/dL Total Bilirubin 0.5 mg/dL Aspartate Amino Transf (AST/SGOT) 17 U/L Alanine Aminotransferase (ALT/SGPT) 29 U/L Alkaline Phosphatase 55 U/L Total Protein 7.5 g/dL Albumin 4.4 g/dL Albumin/Globulin Ratio 1.4 Current Medications Medications (Trade) Dose Ordered Sig/Cassy Route PRN Reason Start Time Stop Time Status Last Admin Dose Admin Meclizine HCl (Antivert) 25 mg 1X ONCE PO 07/08/20 09:00 07/08/20 09:01 DC 07/08/20 09:55 Iohexol (Omnipaque 350 Mg/ml) 75 ml 1X ONCE IV 07/08/20 09:00 07/08/20 09:01 DC 07/08/20 09:10 Info (CONTRAST GIVEN -- Rx MONITORING) 1 each PRN DAILY PRN MC SEE COMMENTS 07/08/20 09:00 07/10/20 08:59 Ondansetron HCl (Zofran) 4 mg PRN Q8HRS PRN IV NAUSEA/VOMITING 07/08/20 11:15 07/09/20 11:14 UNV Vital Signs: Vital Signs Date Time Temp Pulse Resp B/P (MAP) Pulse Ox O2 Delivery O2 Flow Rate FiO2 07/08/20 07:15 98.7 87 12 163/101 (121) 99 Room Air 98.7 EKG: EKG: EKG was done at 743, normal sinus rhythm, no ST segment elevation, rate of 77 beats per minute, normal axis. Radiology/Procedures: Radiology/Procedures: [][facility] [address] [place], [place] [id number] IMAGING REPORT Signed PATIENT: RENETTA HENRIQUEZ LACCOUNT: [id number] : 1975 LOCATION: ER AGE: 44 SEX: F EXAM STATUS: REG ER ORD. PHYSICIAN: REHAN ARMIJO DO REASON: DIZZINESS SINCE SUNDAY PROCEDURE: CT HEAD WO CONTRAST INDICATION: Reason: DIZZINESS SINCE SUNDAY / Spl. Instructions: / History: COMPARISON: None. TECHNIQUE: Axial CT images obtained through the head without intravenous contrast. One or more of the following individualized dose reduction techniques were utilized for this examination: 1. Automated exposure control; 2. Adjustment of the mA and/or kV according to patient size; 3. Use of iterative reconstruction technique. FINDINGS: 16 mm region of high density within the left side of the cerebellum extending to the fourth ventricle No midline shift. Basal cisterns patent. Ventricles and sulci are mildly prominent. No acute osseous abnormality. Orbits and paranasal sinuses unremarkable. IMPRESSION: * At the left-side of the cerebellum there is a small region of high density seen medially measuring up to 16 mm with calcification within. Would consider obtaining an MRI with and without contrast to better evaluate for a small mass in the region. There is some apparent mass effect of the fourth ventricle at this area with mild prominence of the lateral ventricles for the patient's age. There is also some fullness of the foramen magnum and MRI could better assess for location of the cerebellar tonsils given this finding. Report called to the ordering provider at 8:39 AM. Electronically signed by: Bre Bobby MD (07/08/2020 8:39 AM) [id number] DICTATED and SIGNED BY: BRE BOBBY MD DATE: 07/08/20 [id number] [facility] [address] [place] [address] IMAGING REPORT Signed PATIENT: RENETTA HENRIQUEZ LACCOUNT: [id number] : 1975 LOCATION: ER AGE: 44 SEX: F EXAM STATUS: REG ER ORD. PHYSICIAN: REHAN ARMIJO DO REASON: DIZZINESS, NECK PAIN, HAS BEEN MANIPULATED BY CHIROPRACTOR RECENTLY PROCEDURE: CT ANGIOGRAPHY HEAD AND NECK CTA HEAD AND NECK W/WO CONTRAST History:Reason: DIZZINESS, NECK PAIN, HAS BEEN MANIPULATED BY CHIROPRACTOR RECENTLY / Spl. Instructions: INJ 75ML OMNI 350 / History: Technique: After bolus of intravenous contrast, volumetric CT data acquisition was acquired of the head and neck. Multiplanar reconstruction images to include MIP and 3-D reconstruction images are submitted. Exposure: One or more of the following individualized dose reduction techniques were utilized for this examination: 1. Automated exposure control 2. Adjustment of the mA and/or kV according to patient size 3. Use of iterative reconstruction technique. Comparison: Noncontrast head CT July 08, 2020 performed at a separate time from the CT angiogram head and neck. Any determination of stenosis is based on NASCET criteria. Head CTA: ICA: No stenosis, occlusion or aneurysm. MCA: No stenosis, occlusion or aneurysm. DINESH: No stenosis, occlusion or aneurysm. LOCKSTITCH TUNNEL ELASTIC OPERATOR: No stenosis, occlusion or aneurysm. Basilar artery: No stenosis, occlusion or aneurysm. Distal vertebral arteries: No stenosis, occlusion or aneurysm. Patent superior sagittal, straight, transverse and sigmoid venous sinuses. Inferior cerebellar tonsillar ectopia. CT angiogram neck: Aortic arch: Conventional arch anatomy. Common carotid arteries: No stenosis, occlusion or dissection. Internal carotid arteries: No stenosis, occlusion or dissection. Minimal plaque within the right carotid bifurcation. External carotid arteries: Patent Vertebral arteries: No stenosis, occlusion or dissection. Imaged lung apices are unremarkable. Soft tissues appear normal. Bones: Multilevel cervical spondylosis most prominent C5-C6 and C6-C7. Impression: 1. No arterial stenosis or occlusion within the head or neck. 2. 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 DICTATED and SIGNED BY: KASI BRIONES DO DATE: 07/08/20 [id number] Course & Med Decision Making: Course & Med Decision Making Pertinent Labs and Imaging studies reviewed. (See chart for details) Patient is a 44-year-old female who presented to ER for evaluation of dizziness that been going on since Sunday. CTA of her head neck did not show any acute problem. CT scanning her head showed some abnormal AREA On the left cerebellum area. Patient was given meclizine for dizziness, patient was still feeling dizzy when she stood up. Patient will need to be admitted for further evaluation with MRI of the brain. Discussed with Dr. Mccain hospitalist service who agreed to admit the patient. Discussed with the neurologist Dr. Misbah Ponce who agreed to see the patient Dragon Disclaimer: Dragon Disclaimer: This electronic medical record was generated, in whole or in part, using a voice recognition dictation system. Departure Departure Impression: Primary Impression: Dizziness Disposition: ADMITTED INPATIENT Admitting Physician: PENELOPE (DR. ANDERSON) Condition: STABLE Referrals: DIANE BRISENO (PCP) REHAN ARMIJO DO Jul 08, 2020 07:33
[2020-07-08 07:50] LABS: BASO # 0.1 x10^3/uL (0.0-0.2); BASO % 1 % (0-3); EOS # 0.2 x10^3/uL (0.0-0.7); EOS % 4 % (0-3); HEMATOCRIT 43.8 % (36.0-47.0); LYMPH # 2.7 x10^3/uL (1.0-4.8); LYMPH % 42 % (24-48); MEAN CORPUSCULAR HEMOGLOBIN 32 pg (25-35); MEAN CORPUSCULAR HGB CONC 34 g/dL (31-37); MEAN CORPUSCULAR VOLUME 93 fL (79-100); MONO # 0.4 x10^3/uL (0.0-1.1); MONO % 7 % (0-9); NEUT % 47 % (31-73); PLATELET COUNT 269 x10^3/uL (140-400); RED BLOOD COUNT 4.71 x10^6/uL (3.50-5.40); RED CELL DISTRIBUTION WIDTH 13.3 % (11.5-14.5); WHITE BLOOD COUNT 6.3 x10^3/uL (4.0-11.0)
[2020-07-08 07:59] LABS: CALCIUM 9.1 mg/dL (8.5-10.1); CREATININE 0.8 mg/dL (0.6-1.0); GFR 77.9; POTASSIUM 3.7 mmol/L (3.5-5.1)
[2020-07-08 08:09] LABS: ALBUMIN 4.4 g/dL (3.4-5.0); ALBUMIN/GLOBULIN RATIO 1.4 (1.0-1.7); MAGNESIUM 1.8 mg/dL (1.8-2.4); TOTAL BILIRUBIN 0.5 mg/dL (0.2-1.0); TOTAL PROTEIN 7.5 g/dL (6.4-8.2)
--- NOTE | 2020-07-08 08:42 | RAD ---
INDICATION: Reason: DIZZINESS SINCE SUNDAY / . Instructions: / History: COMPARISON: None. TECHNIQUE: Axial CT images obtained through the head without intravenous contrast. One or more of the following individualized dose reduction techniques were utilized for this examinat ion: 1. Automated exposure control; 2. Adjustment of the mA and/or kV according to patient size; 3 . Use of iterative reconstruction technique. FINDINGS: 16 mm region of high density within the left side of the cerebellum extending to the fourth ventricle No midline shift. Basal cisterns patent. Ventricles and sulci are mildly prominent. No acute osseous abnormality. Orbits and paranasal sinuses unremarkable. IMPRESSION: * At the left-side of the cerebellum there is a small region of high density seen medially measurin g up to 16 mm with calcification within. Would consider obtaining an MRI with and without contrast to better evaluate for a small mass in the region. There is some apparent mass effect of the fourth carrie tricle at this area with mild prominence of the lateral ventricles for the patient's age. There is al so some fullness of the foramen magnum and MRI could better assess for location of the cerebellar ton sils given this finding. Report called to the ordering provider at 8:39 AM. Electronically signed by: Phuc Oswald MD (07/08/2020 8:39 AM) [id number]
[2020-07-08] MEDS ORDERED: MECLIZINE HCL 12.5 MG TABLET. PO ONE (09:00)
[2020-07-08] MEDS ORDERED: CONTRAST GIVEN. MC PRN (09:00)
[2020-07-08] MEDS ORDERED: IOHEXOL 350 MG/ML 100 ML VIAL. IV ONE (09:00)
--- NOTE | 2020-07-08 10:13 | RAD ---
CTA HEAD AND NECK W/WO CONTRAST History:Reason: DIZZINESS, NECK PAIN, HAS BEEN MANIPULATED BY CHIROPRACTOR RECENTLY / Spl. Instructio ns: INJ 75ML OMNI 350 / History: Technique: After bolus of intravenous contrast, volumetric CT data acquisition was acquired of the he ad and neck. Multiplanar reconstruction images to include MIP and 3-D reconstruction images are submi tted. Exposure: One or more of the following individualized dose reduction techniques were utilized for thi s examination: 1. Automated exposure control 2. Adjustment of the mA and/or kV according to patient size 3. Use of iterative reconstruction technique. Comparison: Noncontrast head CT July 08, 2020 performed at a separate time from the CT angiogram head and neck. Any determination of stenosis is based on NASCET criteria. Head CTA: ICA: No stenosis, occlusion or aneurysm. MCA: No stenosis, occlusion or aneurysm. DINESH: No stenosis, occlusion or aneurysm. UNIFORM PATROL POLICE OFFICER: No stenosis, occlusion or aneurysm. Basilar artery: No stenosis, occlusion or aneurysm. Distal vertebral arteries: No stenosis, occlusion or aneurysm. Patent superior sagittal, straight, transverse and sigmoid venous sinuses. Inferior cerebellar tonsillar ectopia. CT angiogram neck: Aortic arch: Conventional arch anatomy. Common carotid arteries: No stenosis, occlusion or dissection. Internal carotid arteries: No stenosis, occlusion or dissection. Minimal plaque within the right laurent tid bifurcation. External carotid arteries: Patent Vertebral arteries: No stenosis, occlusion or dissection. Imaged lung apices are unremarkable. Soft tissues appear normal. Bones: Multilevel cervical spondylosis most prominent C5-C6 and C6-C7. Impression: 1. No arterial stenosis or occlusion within the head or neck. 2. 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
[2020-07-08] MEDS ORDERED: ONDANSETRON PF 4 MG/2 ML VIAL. IV PRN (11:15)
--- NOTE | 2020-07-08 12:07 | NUR ---
Patient arrived to room 263 via wheelchair from ER at 1207. Patient A&OX4. VSS. No complaints of pain or dizziness at this time. The patient, RENETTA HENRIQUEZ, 44 y/o, F admitted by SUMIT ANDERSON III, DO, was given written information regarding hospital policies, unit procedures and contact persons. Valuables were checked and noted. Will continue to monitor.
[2020-07-08 12:14] VITALS: BP 133/88
--- NOTE | 2020-07-08 13:09 | HP ---
ADMIT DATE: 07/08/2020 CHIEF COMPLAINT: Vertigo. HISTORY OF PRESENT ILLNESS: The patient is a pleasant 44-year-old female who has vertigo that has been occurring for several days. Actually she states she has had symptoms for several months. Apparently, she has been going to a chiropractor because she had some neck pain after she fell and struck the back of her head at the pool. 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 I discussed the case with ER physician. We are going to admit the patient and get an MRI and consult Neurology. PAST MEDICAL HISTORY: Asthma, neck pain, seasonal allergies, wisdom teeth extraction, tobacco abuse. ALLERGIES: None. FAMILY HISTORY: Hypertension. SOCIAL HISTORY: She cleans pools for living. She does not drink or take drugs. She does smoke. She wants to quit. MEDICATIONS: Reviewed, please refer to the MRAD. REVIEW OF SYSTEMS: GENERAL: No history of weight change, weakness or fevers. SKIN: No bruising, hair changes or rashes. EYES: No blurred, double or loss of vision. NOSE AND THROAT: No history of nosebleeds, hoarseness or sore throat. HEART: No history of palpitations, chest pain or shortness of breath on exertion. LUNGS: Denies cough, hemoptysis, wheezing or shortness of breath. GASTROINTESTINAL: Denies changes in appetite, nausea, vomiting, diarrhea or constipation. GENITOURINARY: No history of frequency, urgency, hesitancy or nocturia. NEUROLOGIC: Denies history of numbness, tingling, tremor or weakness. She complains of dizziness. PSYCHIATRIC: No history of panic, anxiety or depression. ENDOCRINE: No history of heat or cold intolerance, polyuria or polydipsia. EXTREMITIES: Denies muscle weakness, joint pain, pain on walking or stiffness. PHYSICAL EXAMINATION: VITALS: Within normal limits and are stable. GENERAL: No apparent distress. Alert and oriented. HEENT: Normal cephalic atraumatic, external auditory canals are patent. EYES: Extraocular muscles are intact, pupils are equally round and reactive to light and accommodation. MUSCULOSKELETAL: Well developed, well nourished, good range of motion. ENDOCRINE: No thyromegaly was palpated. LYMPHATICS: No cervical chain or axillary nodes were noted. HEMATOPOIETIC: No bruising. NECK: Supple, no JVD, no thyromegaly was noted. LUNGS: Clear to auscultation in all lung delacruz without rhonchi or wheezing. HEART: RRR, S1, S2 present. Peripheral pulses intact, no obvious murmurs were noted. ABDOMEN: Soft, nontender. Positive bowel sounds no organomegaly, normal bowel sounds. EXTREMITIES: Without any cyanosis, clubbing, or edema. Pedal pulses intact, Homans sign is negative. NEUROLOGIC: Normal speech, normal tone. A and O x 3, moves all extremities, no obvious focal deficits. PSYCHIATRIC: Normal affect, normal mood. Stable. SKIN: No ulcerations or rashes, good skin turgor, no jaundice. VASCULAR: Good capillary refill, neurovascular bundle appears to be intact. LABORATORY DATA: CT of the head shows 16 mm region of high density within the left side of the cerebellum extending into the fourth ventricle. ASSESSMENT AND PLAN: Vertigo with abnormal imaging. The patient will be admitted. We will get an MRI of the brain. Consult Dr. Harris. Home medications. Deep venous thrombosis prophylaxis. Full code. I spent 30 minutes talking about not smoking anymore and cigarette cessation education, PT, OT. [facility] [place] [place] DR: CLIVE/stevie TID: [id number]
--- NOTE | 2020-07-08 13:53 | PDOC2 ---
NEUROLOGY CONSULT Date of Service DOS: DATE: 07/08/20 TIME: 13:45 Reason for Consult Reason for Consult: Vertigo, abnormal head CT Referring Physician Referring Physician: Dr. Ramon Source Source: Caregiver (Mother), Chart review, Patient History of Present Illness History of Present Illness The patient is a 44-year-old right-handed female who has had vertigo off and on since the evening of 07/05. Symptoms are worse when she sits up and moves her head. She describes true vertigo. She has been seeing a chiropractor since January due to neck problems and he also was working on the dizziness. He did tell her yesterday to go to the emergency department if she were no better today. Patient does have longstanding tinnitus. She denies diplopia, dysphagia, dysarthria, numbness, weakness, or hearing loss. There are no prior episodes of vertigo. She does have a mild headache and has had a few migraines in the past. She says that she is feeling much better after receiving a single dose of meclizine in the emergency department Past Medical History Cardiovascular: HTN, Hyperlipidemia Pulmonary: Asthma CENTRAL NERVOUS SYSTEM: Migraine Psych: Depression Musculoskeletal: Other (Chronic neck pain) ENT: Allergic Rhinitis, Other (Tinnitus) Past Surgical History Past Surgical History: Tonsillectomy, Other ([place] teeth) Family History Family History: Hypertension Social History Social History Single, 2 children, insurance office manager, quit smoking a month ago, rare alcohol Current Medications Current Medications Current Medications Meclizine HCl (Antivert) 25 mg 1X ONCE PO Last administered on 07/08/20at 09:55; Start 07/08/20 at 09:00; Stop 07/08/20 at 09:01; Status DC Iohexol (Omnipaque 350 Mg/ml) 75 ml 1X ONCE IV Last administered on 07/08/20at 09:10; Start 07/08/20 at 09:00; Stop 07/08/20 at 09:01; Status DC Info (CONTRAST GIVEN -- Rx MONITORING) 1 each PRN DAILY PRN MC SEE COMMENTS; Start 07/08/20 at 09:00; Stop 07/10/20 at 08:59 Ondansetron HCl (Zofran) 4 mg PRN Q8HRS PRN IV NAUSEA/VOMITING; Start 07/08/20 at 11:15; Stop 07/09/20 at 11:14 Active Scripts Active Reported No Known Medications Prior To Admisstion (Info) Each 1 Each Allergies Allergies: Coded Allergies: No Known Drug Allergies (Unverified , 07/19/19) ROS Review of System Negative for fever, chills, weight loss, shortness of breath, chest pain, indigestion, hematochezia, melena, and dysuria. Full 14-point review of systems is negative. Physical Exam Physical Examination General: Well-developed, well-nourished white female in no acute distress HEENT: Normocephalic andatraumatic. Tympanic membranes clear.Temporal arteriespulsatile and nontender. Neck: Supple without bruit, no meningismus Musculoskeletal: Stability:see neurologic. Gait exam:see neurologic. Tone:see neurologic.Strength:see neurologic. Neurological: Mental Status:intact, orientation, memory, attention span/concentration, language, fund of knowledge normal. Cranial Nerves:Pupils equal and reactive to light, extraocular movements areintact, visual delacruz are full to confrontation. Facial sensation is normal. There is no facial asymmetry. Vestibulo-ocular reflex is intact. Palate elevates and tongue protrudes in midline. I sit her up to try to walk her, but she becomes dizzy, and there is some left gaze-evoked nystagmus. All other cranial related problems are negative except as mentioned before.Reflexes:2+ and symmetric with flexor plantar responses. Motor:5/5 strength with normal tone and bulk. Coordination:Finger- nose finger and [id number] testing are normal. Rapid alternating movements and fine finger movements are intact. Gait:not tested. Sensory:Normal pinprick, vibration, light touch, proprioception. Vitals VITALS Vital Signs Date Time Temp Pulse Resp B/P (MAP) Pulse Ox O2 Delivery O2 Flow Rate FiO2 07/08/20 12:45 Room Air 07/08/20 11:39 65 157/91 (113) 98 07/08/20 07:15 98.7 12 98.7 Labs Labs Laboratory Tests Test 07/08/20 07:36 White Blood Count 6.3 x10^3/uL (4.0-11.0) Red Blood Count 4.71 x10^6/uL (3.50-5.40) Hemoglobin 15.0 g/dL (12.0-15.5) Hematocrit 43.8 % (36.0-47.0) Mean Corpuscular Volume 93 fL (79-100) Mean Corpuscular Hemoglobin 32 pg (25-35) Mean Corpuscular Hemoglobin Concent 34 g/dL (31-37) Red Cell Distribution Width 13.3 % (11.5-14.5) Platelet Count 269 x10^3/uL (140-400) Neutrophils (%) (Auto) 47 % (31-73) Lymphocytes (%) (Auto) 42 % (24-48) Monocytes (%) (Auto) 7 % (0-9) Eosinophils (%) (Auto) 4 % (0-3) Basophils (%) (Auto) 1 % (0-3) Neutrophils # (Auto) 3.0 x10^3/uL (1.8-7.7) Lymphocytes # (Auto) 2.7 x10^3/uL (1.0-4.8) Monocytes # (Auto) 0.4 x10^3/uL (0.0-1.1) Eosinophils # (Auto) 0.2 x10^3/uL (0.0-0.7) Basophils # (Auto) 0.1 x10^3/uL (0.0-0.2) Sodium Level 144 mmol/L (136-145) Potassium Level 3.7 mmol/L (3.5-5.1) Chloride Level 106 mmol/L (98-107) Carbon Dioxide Level 30 mmol/L (21-32) Anion Gap 8 (6-14) Blood Urea Nitrogen 9 mg/dL (7-20) Creatinine 0.8 mg/dL (0.6-1.0) Estimated GFR (Cockcroft-Gault) 77.9 BUN/Creatinine Ratio 11 (6-20) Glucose Level 93 mg/dL (70-99) Calcium Level 9.1 mg/dL (8.5-10.1) Magnesium Level 1.8 mg/dL (1.8-2.4) Total Bilirubin 0.5 mg/dL (0.2-1.0) Aspartate Amino Transf (AST/SGOT) 17 U/L (15-37) Alanine Aminotransferase (ALT/SGPT) 29 U/L (14-59) Alkaline Phosphatase 55 U/L (46-116) Total Protein 7.5 g/dL (6.4-8.2) Albumin 4.4 g/dL (3.4-5.0) Albumin/Globulin Ratio 1.4 (1.0-1.7) Laboratory Tests Test 07/08/20 07:36 White Blood Count 6.3 x10^3/uL (4.0-11.0) Red Blood Count 4.71 x10^6/uL (3.50-5.40) Hemoglobin 15.0 g/dL (12.0-15.5) Hematocrit 43.8 % (36.0-47.0) Mean Corpuscular Volume 93 fL (79-100) Mean Corpuscular Hemoglobin 32 pg (25-35) Mean Corpuscular Hemoglobin Concent 34 g/dL (31-37) Red Cell Distribution Width 13.3 % (11.5-14.5) Platelet Count 269 x10^3/uL (140-400) Neutrophils (%) (Auto) 47 % (31-73) Lymphocytes (%) (Auto) 42 % (24-48) Monocytes (%) (Auto) 7 % (0-9) Eosinophils (%) (Auto) 4 % (0-3) Basophils (%) (Auto) 1 % (0-3) Neutrophils # (Auto) 3.0 x10^3/uL (1.8-7.7) Lymphocytes # (Auto) 2.7 x10^3/uL (1.0-4.8) Monocytes # (Auto) 0.4 x10^3/uL (0.0-1.1) Eosinophils # (Auto) 0.2 x10^3/uL (0.0-0.7) Basophils # (Auto) 0.1 x10^3/uL (0.0-0.2) Sodium Level 144 mmol/L (136-145) Potassium Level 3.7 mmol/L (3.5-5.1) Chloride Level 106 mmol/L (98-107) Carbon Dioxide Level 30 mmol/L (21-32) Anion Gap 8 (6-14) Blood Urea Nitrogen 9 mg/dL (7-20) Creatinine 0.8 mg/dL (0.6-1.0) Estimated GFR (Cockcroft-Gault) 77.9 BUN/Creatinine Ratio 11 (6-20) Glucose Level 93 mg/dL (70-99) Calcium Level 9.1 mg/dL (8.5-10.1) Magnesium Level 1.8 mg/dL (1.8-2.4) Total Bilirubin 0.5 mg/dL (0.2-1.0) Aspartate Amino Transf (AST/SGOT) 17 U/L (15-37) Alanine Aminotransferase (ALT/SGPT) 29 U/L (14-59) Alkaline Phosphatase 55 U/L (46-116) Total Protein 7.5 g/dL (6.4-8.2) Albumin 4.4 g/dL (3.4-5.0) Albumin/Globulin Ratio 1.4 (1.0-1.7) Images Images CT head: 16 mm region of high density within the left side of the cerebellum extending to the fourth ventricle No midline shift. Basal cisterns patent. Ventricles and sulci are mildly prominent. No acute osseous abnormality. Orbits and paranasal sinuses unremarkable. IMPRESSION: * At the left-side of the cerebellum there is a small region of high density seen medially measuring up to 16 mm with calcification within. Would consider obtaining an MRI with and without contrast to better evaluate for a small mass in the region. There is some apparent mass effect of the fourth ventricle at this area with mild prominence of the lateral ventricles for the patient's age. There is also some fullness of the foramen magnum and MRI could better assess for location of the cerebellar tonsils given this finding. CTA HEAD AND NECK W/WO CONTRAST History:Reason: DIZZINESS, NECK PAIN, HAS BEEN MANIPULATED BY CHIROPRACTOR RECENTLY / Spl. Instructions: INJ 75ML OMNI 350 / History: Technique: After bolus of intravenous contrast, volumetric CT data acquisition was acquired of the head and neck. Multiplanar reconstruction images to include MIP and 3-D reconstruction images are submitted. Exposure: One or more of the following individualized dose reduction techniques were utilized for this examination: 1. Automated exposure control 2. Adjustment of the mA and/or kV according to patient size 3. Use of iterative reconstruction technique. Comparison: Noncontrast head CT July 08, 2020 performed at a separate time from the CT angiogram head and neck. Any determination of stenosis is based on NASCET criteria. Head CTA: ICA: No stenosis, occlusion or aneurysm. MCA: No stenosis, occlusion or aneurysm. DINESH: No stenosis, occlusion or aneurysm. LAUNCH ENGINEER: No stenosis, occlusion or aneurysm. Basilar artery: No stenosis, occlusion or aneurysm. Distal vertebral arteries: No stenosis, occlusion or aneurysm. Patent superior sagittal, straight, transverse and sigmoid venous sinuses. Inferior cerebellar tonsillar ectopia. CT angiogram neck: Aortic arch: Conventional arch anatomy. Common carotid arteries: No stenosis, occlusion or dissection. Internal carotid arteries: No stenosis, occlusion or dissection. Minimal plaque within the right carotid bifurcation. External carotid arteries: Patent Vertebral arteries: No stenosis, occlusion or dissection. Imaged lung apices are unremarkable. Soft tissues appear normal. Bones: Multilevel cervical spondylosis most prominent C5-C6 and C6-C7. Impression: 1. No arterial stenosis or occlusion within the head or neck. 2. 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 Probably not clinically germane. Tinnitus, migraine headaches, raising the possibility of Mnire's disease, doubt, or migraine-associated dizziness. Recommendations: MRI of the brain with and without contrast Supportive care with meclizine, ondansetron, and fluids Aim for discharge tomorrow I discussed with patient and her mother. Thank you for letting me help with the patient's care. MIRIAN DOMINGO MD Jul 08, 2020 13:53
[2020-07-08] MEDS ORDERED: MECLIZINE HCL 12.5 MG TABLET. PO PRN (14:00)
[2020-07-08] MEDS ORDERED: GADOTERATE 7.5 MMOL/15ML VIAL. IVP ONE (14:30)
--- NOTE | 2020-07-08 16:41 | RAD ---
EXAM: Brain MRI with and without contrast. HISTORY: Dizziness. Abnormal cerebellum on CT. TECHNIQUE: Multiplanar, multisequence magnetic resonance imaging of the brain was performed prior to and following the administration of intravenous contrast. COMPARISON: CT 07/08/2020. FINDINGS: There is no restricted diffusion to suggest acute or subacute infarction. There is no susce ptibility effect to suggest hemorrhage. There is no midline shift. There is no hydrocephalus. No susp icious white matter lesion is seen. No enhancing lesion is seen. There is cerebellar tonsillar ectopia with associated deformation of the cerebellar tonsils and effac ement of the extra-axial space at the foramen magnum. The cerebellar tonsils extend approximately 10 mm inferior to the foramen magnum. The associated deformation of the cerebellar tonsils accounts for abnormality on the recent CT. No suspicious mass is seen in this location. The orbits, paranasal sinuses and mastoid air cells are unremarkable. There are normal flow voids wit hin the cerebral vessels. There is no suspicious calvarial lesion. IMPRESSION: 1. Chiari I malformation. There is cerebellar tonsillar ectopia extending tendon and inferior to the foramen magnum and associated cerebellar tonsillar deformation and effacement of the extra-axial spac e of the foramen magnum. 2. No acute intracranial finding. Electronically signed by: Rosalia Mckeon MD (07/08/2020 4:39 PM) [id number]
[2020-07-08 19:00] VITALS: BP 133/73
[2020-07-08 23:21] VITALS: BP 134/66
[2020-07-09 03:00] VITALS: BP 101/68
[2020-07-09 07:00] VITALS: BP 102/77
--- NOTE | 2020-07-09 09:21 | PDOC ---
PROGRESS NOTES Date of Service DATE: 07/09/20 TIME: 09:19 Assessment Problems Medical Problems: (1) Dizziness Status: Acute Peripheral vertigo, history and exam consistent with left vestibular neuronitis. Symptoms have resolved for the most part. Cerebellar calcified lesion, probably congenital. Probably not clinically germane. MRI does not show the lesion, does confirm a Chiari I malformation, also not clinically germane Tinnitus, migraine headaches, raising the possibility of Mnire's disease, doubt, or migraine-associated dizziness. Plan Home on as needed meclizine, which she can get [id number]. She should use it no more than 2 more weeks, though Follow-up with me or ENT if symptoms persist more than 2 or 3 weeks Okay for discharge Subjective Just a little bit of dizziness with rapid movement, she is much better Objective Vital Signs Date Time Temp Pulse Resp B/P (MAP) Pulse Ox O2 Delivery O2 Flow Rate FiO2 07/09/20 03:00 98.3 72 20 101/68 (79) 93 Room Air 98.3 Intake and Output 07/09/20 07:00 Intake Total 500 ml Balance 500 ml Intake Oral 500 ml # Voids 3 PHYSICAL EXAM Alert. Oriented to time, place and person. PERRL. EOMI. CN: no focal findings. She no longer has nystagmus Muscle tone: normal. Muscle strength: 5/5 DTR: 2+ Plantar reflex: Flexor Gait: Normal, pivots rapidly without evoking dizziness. Sensory exam: no abnormal findings. No cerebellar signs elicited. Review of Relevant I have reviewed the following items dinora (where applicable) has been applied. Labs Laboratory Tests Test 07/08/20 07:36 White Blood Count 6.3 x10^3/uL (4.0-11.0) Red Blood Count 4.71 x10^6/uL (3.50-5.40) Hemoglobin 15.0 g/dL (12.0-15.5) Hematocrit 43.8 % (36.0-47.0) Mean Corpuscular Volume 93 fL (79-100) Mean Corpuscular Hemoglobin 32 pg (25-35) Mean Corpuscular Hemoglobin Concent 34 g/dL (31-37) Red Cell Distribution Width 13.3 % (11.5-14.5) Platelet Count 269 x10^3/uL (140-400) Neutrophils (%) (Auto) 47 % (31-73) Lymphocytes (%) (Auto) 42 % (24-48) Monocytes (%) (Auto) 7 % (0-9) Eosinophils (%) (Auto) 4 % (0-3) Basophils (%) (Auto) 1 % (0-3) Neutrophils # (Auto) 3.0 x10^3/uL (1.8-7.7) Lymphocytes # (Auto) 2.7 x10^3/uL (1.0-4.8) Monocytes # (Auto) 0.4 x10^3/uL (0.0-1.1) Eosinophils # (Auto) 0.2 x10^3/uL (0.0-0.7) Basophils # (Auto) 0.1 x10^3/uL (0.0-0.2) Sodium Level 144 mmol/L (136-145) Potassium Level 3.7 mmol/L (3.5-5.1) Chloride Level 106 mmol/L (98-107) Carbon Dioxide Level 30 mmol/L (21-32) Anion Gap 8 (6-14) Blood Urea Nitrogen 9 mg/dL (7-20) Creatinine 0.8 mg/dL (0.6-1.0) Estimated GFR (Cockcroft-Gault) 77.9 BUN/Creatinine Ratio 11 (6-20) Glucose Level 93 mg/dL (70-99) Calcium Level 9.1 mg/dL (8.5-10.1) Magnesium Level 1.8 mg/dL (1.8-2.4) Total Bilirubin 0.5 mg/dL (0.2-1.0) Aspartate Amino Transf (AST/SGOT) 17 U/L (15-37) Alanine Aminotransferase (ALT/SGPT) 29 U/L (14-59) Alkaline Phosphatase 55 U/L (46-116) Total Protein 7.5 g/dL (6.4-8.2) Albumin 4.4 g/dL (3.4-5.0) Albumin/Globulin Ratio 1.4 (1.0-1.7) Medications Current Medications Meclizine HCl (Antivert) 25 mg 1X ONCE PO Last administered on 07/08/20at 09:55; Start 07/08/20 at 09:00; Stop 07/08/20 at 09:01; Status DC Iohexol (Omnipaque 350 Mg/ml) 75 ml 1X ONCE IV Last administered on 07/08/20at 09:10; Start 07/08/20 at 09:00; Stop 07/08/20 at 09:01; Status DC Info (CONTRAST GIVEN -- Rx MONITORING) 1 each PRN DAILY PRN MC SEE COMMENTS; Start 07/08/20 at 09:00; Stop 07/10/20 at 08:59 Ondansetron HCl (Zofran) 4 mg PRN Q8HRS PRN IV NAUSEA/VOMITING; Start 07/08/20 at 11:15; Stop 07/09/20 at 11:14 Meclizine HCl (Antivert) 12.5 mg PRN Q6HRS PRN PO DIZZINESS; Start 07/08/20 at 14:00 Gadoterate Meglumine (Clariscan) 13 ml 1X ONCE IVP Last administered on 07/08/20at 15:32; Start 07/08/20 at 14:30; Stop 07/08/20 at 14:31; Status DC Active Scripts Active Reported No Known Medications Prior To Admisstion (Info) Each 1 Each Vitals/I & O Vital Sign - Last 24 Hours 07/08/20 07/08/20 07/08/20 07/08/20 09:39 10:14 10:39 11:09 Pulse 87 75 88 69 B/P (MAP) 164/87 (112) 131/83 (99) 185/87 (119) 147/84 (105) Pulse Ox 96 96 97 96 O2 Delivery Room Air Room Air Room Air Room Air 07/08/20 07/08/20 07/08/20 07/08/20 11:39 12:14 12:45 19:00 Temp 97.9 97.4 97.9 97.4 Pulse 65 74 96 Resp 18 16 B/P (MAP) 157/91 (113) 133/88 (103) 133/73 (93) Pulse Ox 98 94 98 O2 Delivery Room Air Room Air Room Air Room Air 07/08/20 07/08/20 07/09/20 19:58 23:21 03:00 Temp 98.1 98.3 98.1 98.3 Pulse 91 72 Resp 20 20 B/P (MAP) 134/66 (88) 101/68 (79) Pulse Ox 95 93 O2 Delivery Room Air Room Air Room Air Intake and Output 07/08/20 07/08/20 07/09/20 15:00 23:00 07:00 Intake Total 200 ml 300 ml Balance 200 ml 300 ml Images Brain MRI with and without contrast. HISTORY: Dizziness. Abnormal cerebellum on CT. TECHNIQUE: Multiplanar, multisequence magnetic resonance imaging of the brain was performed prior to and following the administration of intravenous contrast. COMPARISON: CT 07/08/2020. FINDINGS: There is no restricted diffusion to suggest acute or subacute infarction. There is no susceptibility effect to suggest hemorrhage. There is no midline shift. There is no hydrocephalus. No suspicious white matter lesion is seen. No enhancing lesion is seen. There is cerebellar tonsillar ectopia with associated deformation of the cerebellar tonsils and effacement of the extra-axial space at the foramen magnum. The cerebellar tonsils extend approximately 10 mm inferior to the foramen magnum. The associated deformation of the cerebellar tonsils accounts for abnormality on the recent CT. No suspicious mass is seen in this location. The orbits, paranasal sinuses and mastoid air cells are unremarkable. There are normal flow voids within the cerebral vessels. There is no suspicious calvarial lesion. IMPRESSION: 1. Chiari I malformation. There is cerebellar tonsillar ectopia extending tendon and inferior to the foramen magnum and associated cerebellar tonsillar deformation and effacement of the extra-axial space of the foramen magnum. 2. No acute intracranial finding. Justicifation of Admission Dx: Justifications for Admission: Justification of Admission Dx: No MIRIAN DOMINGO MD Jul 09, 2020 09:21
[2020-07-09] MEDS ORDERED: ONDA4TAB7 PO (10:56)
[2020-07-09] MEDS ORDERED: MECL12.582 PO (10:56)
--- NOTE | 2020-07-09 10:58 | DISCH ---
DISCHARGE INSTRUCTIONS Condition on Discharge Condition on Discharge: Stable Activity After Discharge Activity Instructions for Disc: Activity as tolerated Lifting Instructions after Dis: Do not lift >10 pounds Driving Instructions after Dis: Do not drive today Weight Bearing Status after Di: As tolerated Diet after Discharge Diet after Discharge: Cardiac Contacting the DRGamal after DC Call your doctor for: If your condition worsens Follow-Up Follow up with: PCP within 2 weeks of discharge Follow Up With: Neurology or ENT in 1 to 2 weeks if no improvement AMADEO ESPINOSA MD Jul 09, 2020 10:58
--- NOTE | 2020-07-09 11:43 | NUR ---
SS following for discharge planning. SS reviewed pt chart and discussed with pt RN. Pt is from home with spouse and is currently on room air. PT/OT recommended home. Discharge order on the chart for home with self care.
--- NOTE | 2020-07-09 12:10 | NUR ---
Discharge Note: RENETTA HENRIQUEZ [address] Discharge instructions and discharge home medications reviewed with Patient and a copy given. All questions have been answered and understanding verbalized. The following instructions and handouts were given: Discontinued lines and drains: Peripheral IV intact. Patient discharged to Home or Self Care withFamily Membervia Ambulated Addendum: 07/09/20 at 1234 by SUSIE HENDRIX RN Patient given education on medications, discharge instructions, vertigo, Chiari I. Patient left at 1210 with mother.
--- NOTE | 2020-07-13 08:07 | PDOC3 ---
[facility]-Discharge Summary Date of Admission: Date of Admission: Jul 08, 2020 Date of Discharge: Date of Discharge: Jul 09, 2020 Consults: Consults: Neuro recs: Plan Home on as needed meclizine, which she can get [id number]. She should use it no more than 2 more weeks, though Follow-up with me or ENT if symptoms persist more than 2 or 3 weeks Okay for discharge Hospital Course: Hospital Course: By day of discharge, pt was clinically stable and ready for discharge. Rest of hospital course was uneventful 44-year-old female who has vertigo that has been occurring for several days. Actually she states she has had symptoms for several months. Apparently, she has been going to a chiropractor because she had some neck pain after she fell and struck the back of her head at the pool. 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 I discussed the case with ER physician. We are going to admit the patient and get an MRI and consult Neurology. Disposition: Disposition/Orders: D/C to Home Activity: Activity: Resume previous activity Diet: Diet: Cardiac Medications: Home Meds Active Scripts Ondansetron Hcl (ZOFRAN) 4 Mg Tablet, 4 MG PO Q6-8HRS PRN for NAUSEA/VOMITING for 30 Days, #60 TAB Prov:AMADEO ESPINOSA MD 07/09/20 Meclizine Hcl (MECLIZINE HCL) 12.5 Mg Tablet, 12.5 MG PO PRN Q6HRS PRN for DIZZINESS for 30 Days, #60 TAB Prov:AMADEO ESPINOSA MD 07/09/20 Discontinued Reported Medications Info (NO KNOWN MEDICATIONS PRIOR TO ADMISSTION) Each, 1 EACH MC for , EACH 07/08/20 Scheduled PRN Meclizine Hcl (Meclizine Hcl), 12.5 MG PO PRN Q6HRS PRN for DIZZINESS Ondansetron Hcl (Zofran), 4 MG PO Q6-8HRS PRN for NAUSEA/VOMITING Discontinued Medications Info (No Known Medications Prior To Admisstion), 1 EACH MC , (Reported) Total Time: Total Time: Total time spent was 40 minutes in preparing scripts, discharge planning with SW and RN, and preparing this discharge summary. Patient seen and examined on day of discharge. Justicifation of Admission Dx: Justifications for Admission: Justification of Admission Dx: AMADEO Richmond MD Jul 13, 2020 08:06
== END 2020-07-09 12:10 | disposition home or self-care (01) ==
LOC: ER 07:03 → 2 SOUTH 11:00
PROVIDERS: ADMIT Internal Medicine; ATTEND Internal Medicine
DX: R42 Dizziness and giddiness (principal); I10 Essential (primary) hypertension; J45.909 Unspecified asthma, uncomplicated; G93.5 Compression of brain; H93.19 Tinnitus, unspecified ear; F32.9 Major depressive disorder, single episode, unspecified; E78.5 Hyperlipidemia, unspecified; F17.210 Nicotine dependence, cigarettes, uncomplicated; G93.9 Disorder of brain, unspecified; G43.909 Migraine, unspecified, not intractable, without status migrainosus; Z98.51 Tubal ligation status; Z90.49 Acquired absence of other specified parts of digestive tract; Z79.899 Other long term (current) drug therapy; Z98.890 Other specified postprocedural states
CPT/HCPCS: 36415; 70450; 70496; 70498; 70553; 80053; 83735; 85025; 95992; 97161; 99285; 99406; A9575; G0378; J8597; Q9967; G0379